=== PATIENT | male | born 1985 | race Caucasian/White ===

== ENCOUNTER 2017-04-30 16:44 | Emergency (ER) | payer BC ==
[~2017-04-30] VITALS: Ht 177.8 cm; Wt 69.2 kg
[~2017-04-30 16:44] MED LIST: ALBUTEROL17 GM IH; NOHOMEMEDS; VICODIN 5-5001 EACH PO; ZITHROMAX Z-PA250 MG PO
[2017-04-30] MEDS ORDERED: ZOFRAN ODT4 MG PO (17:37)
[2017-04-30] MEDS ORDERED: PHENERGAN25 MG PR (17:37)
[2017-04-30] MEDS ORDERED: MOTRIN800 MG PO (17:38)
[2017-04-30 18:23] VITALS: BP 128/79
== END 2017-04-30 18:34 | disposition home or self-care (01) ==
LOC: EME 16:44
DX: J06.9 Acute upper respiratory infection, unspecified (principal); R11.2 Nausea with vomiting, unspecified
CPT/HCPCS: 99281; 99284